=== PATIENT | female | born 1960 ===

== ENCOUNTER 2017-04-13 12:21 | Emergency (ER) | payer MEDICAID ==
[2017-04-13 12:21] VITALS: BMI 29.8
[2017-04-13 12:28] VITALS: BP 118/79; PULSE 81; RESP 18; TEMP 98.1; O2SAT 100
[2017-04-13] MEDS ORDERED: Naproxen 550 mg Tab PO STA (12:43)
[2017-04-13] MEDS ORDERED: Naproxen 550 mg Tab PO ONE (12:53)
--- NOTE | 2017-04-13 13:06 | C.PDOC ---
History Of Present Illness 56 y/o female presents complaining of left third finger pain, onset today. States she was opening a door and jammed the finger. No change in sensation, weakness, or tingling. Patient is right hand dominant. Denies taking any medications for pain relief. Time Seen by Provider: 04/13/17 12:31 Chief Complaint (Nursing): Upper Extremity Problem/Injury History Per: Patient History/Exam Limitations: no limitations Onset/Duration Of Symptoms: Days (x1) Current Symptoms Are (Timing): Still Present Past Medical History Reviewed: Historical Data, Nursing Documentation, Vital Signs Vital Signs: Last Vital Signs Temp 98.1 F 04/13/17 12:26 Pulse 81 04/13/17 12:26 Resp 18 04/13/17 12:26 BP 118/79 04/13/17 12:26 Pulse Ox 100 04/13/17 13:17 - Medical History PMH: HTN, Hypercholesterolemia, Hypothyroidism Denies: Chronic Kidney Disease Surgical History: Appendectomy, Cholecystectomy - [facility] Procedures COLONOSCOPY (05/10/14) Family History: States: Unknown Family Hx - Social History Hx Alcohol Use: Yes (''Festive only'') Hx Substance Use: No - Immunization History Hx Tetanus Toxoid Vaccination: No Hx Influenza Vaccination: No (''Declines'') Hx Pneumococcal Vaccination: No Review Of Systems Except As Marked, All Systems Reviewed And Found Negative. Musculoskeletal: Positive for: Other (pain to left 3rd digit) Neurological: Negative for: Weakness, Numbness Physical Exam - Physical Exam Appears: Well, Non-toxic, No Acute Distress Skin: Normal Color, Warm, Dry Head: Atraumatic, Normacephalic Eye(s): bilateral: Normal Inspection, PERRL, EOMI Nose: Normal Oral Mucosa: Moist Chest: Symmetrical Respiratory: No Accessory Muscle Use, Other (speaking in full sentences) Extremity: Normal ROM, Tenderness (to MCP joint of left 3rd digit), No Deformity , No Swelling Pulses: Left Radial: Normal, Right Radial: Normal Neurological/Psych: Oriented x3, Normal Speech ED Course And Treatment O2 Sat by Pulse Oximetry: 100 (RA) Pulse Ox Interpretation: Normal - Other Rad x-ray left digit X-Ray: Interpreted by Me, Viewed By Me Interpretation: No fracture, no dislocation Progress Note: X-Ray Left Hand (3rd digit) ordered to evaluate for fracture. Patient given naproxen 550mg. X-Ray negative. Finger splint applied by vice president regulatory Disposition Counseled Patient/Family Regarding: Studies Performed, Diagnosis, Need For Followup, Rx Given - Disposition Referrals: Brandt Bueno MD [Staff Provider] - Disposition: HOME/ ROUTINE Disposition Time: 13:04 Condition: STABLE Additional Instructions: Seguimiento con el especialista de la mano en 1-2 mendoza. Regrese a er si symtpoms persistir o empeorar. Prescriptions: Ibuprofen [Motrin] 600 mg PO Q6 PRN #20 tab PRN Reason: Pain, Mild (1-3) Instructions: Finger Sprain (ED) Forms: [employer] ([place]idadian) Print Language: NIGERIAN - POA Present On Arrival: None - Clinical Impression Clinical Impression: Finger sprain - PA / HEAD BANQUET WAITER/WAITRESS / Resident Statement MD/DO has reviewed & agrees with the documentation as recorded. - Scribe Statement The provider has reviewed the documentation as recorded by the Scribe (Carrie Marx) All medical record entries made by the Scribe were at my direction and personally dictated by me. I have reviewed the chart and agree that the record accurately reflects my personal performance of the history, physical exam, medical decision making, and the department course for this patient. I have also personally directed, reviewed, and agree with the discharge instructions and disposition.
--- NOTE | 2017-04-13 14:27 | RAD ---
PROCEDURE: Left middle finger dated 04/13/2017 HISTORY: Pain. COMPARISON: None. TECHNIQUE: AP radiograph of the left hand, as well as spot oblique and lateral images of left middle finger were obtained. FINDINGS: LEFT MIDDLE FINGER: Left middle finger normal, without fracture of focal lesion. No evidence of cortical destructive changes. Remainder of the left hand (as seen on the AP view) is grossly unremarkable. JOINTS: Joint spaces preserved. No significant osteoarthritis SOFT TISSUES: Normal. OTHER FINDINGS: None. IMPRESSION: No evidence of acute displaced fracture nor dislocation.
== END 2017-04-13 13:25 | disposition home or self-care (01) ==
LOC: C.ER 12:21
DX: S63.613A Unspecified sprain of left middle finger, initial encounter (principal); W23.0XXA Caught, crushed, jammed, or pinched between moving objects, initial encounter; Y92.9 Unspecified place or not applicable